=== PATIENT | male | born 2000 | race Two or more races ===

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

== ENCOUNTER 2018-05-21 23:49 | Emergency (ER) | payer OTHER ==
[2018-05-22] MEDS ORDERED: ONDANSETRON DISINTEGRATING 4 MG TAB ONE (00:21)
[2018-05-22] MEDS ORDERED: ONDANSETRON DISINTEGRATING 4 MG TAB PO ONE (00:22)
--- NOTE | 2018-05-22 00:26 | EDPHY ---
H & P Stated Complaint: diarrhea, nausea Time Seen by Provider: 05/22/18 00:11 HPI/ROS: Chief Complaint: Headache, nausea, diarrhea HPI: 18-year-old male developed a mild headache at 5:00 a.m. This evening. He then developed some mild nausea with some abdominal cramping. 30 min ago he had 1 episode of loose stool. He now feels better. No blood or dark tarry stools. He has not vomited. No fevers or chills. No neck stiffness. Headache is resolved. He did take some cough and cold medicine. No cough. No shortness of breath. ROS: 10 systems were reviewed and were negative except those elements noted in the HPI. PMH: Denies Social History: No smoking, no alcohol, no recreational drug use Family History: non-contributory Physical Exam: Gen: Awake, Alert, No Distress HEENT: Nose: no rhinorrhea Eyes: PERRLA, EOMI Mouth: Moist mucosa Neck: Supple, no JVD Chest: nontender, lungs clear to auscultation Heart: S1, S2 normal, no murmur Abd: Soft, non-tender, no guarding Back: no CVA tenderness, no midline tenderness Ext: no edema, non-tender Skin: no rash Neuro: CN II-XII intact, Sensation grossly intact, Strength 5/5 in bilateral upper and lower extremities - Medical/Surgical History Hx Asthma: No Hx Chronic Respiratory Disease: No Hx Diabetes: No Hx Cardiac Disease: No Hx Renal Disease: No Hx Cirrhosis: No Hx Alcoholism: No Hx HIV/AIDS: No Hx Splenectomy or Spleen Trauma: No Other PMH: PMH: denies - Social History Smoking Status: Never smoked Constitutional: Initial Vital Signs Temperature (C) 36.3 C 05/21/18 23:53 Heart Rate 90 05/21/18 23:53 Respiratory Rate 20 05/21/18 23:53 Blood Pressure 119/68 05/21/18 23:53 O2 Sat (%) 97 05/21/18 23:53 O2 Delivery Mode Room Air Allergies/Adverse Reactions: No Known Allergies Allergy (Verified 05/21/18 23:52) Home Medications: Medication Instructions Recorded NK [No Known Home Meds] 12/22/17 Medical Decision Making ED Course/Re-evaluation: Patient is tolerating p. O.. Abdomen is soft and benign. No longer complaining of pain. Will discharge with Zofran prepack, follow up with primary care for any concerns. - Data Points Medications Given: Discontinued Medications Ondansetron HCl (Zofran Odt) 4 mg PO EDNOW ONE Stop: 05/22/18 00:23 Last Admin: 05/22/18 00:26 Dose: 4 mg Departure - Departure Disposition: Home, Routine, Self-Care Clinical Impression: Diarrhea, Nausea & vomiting Condition: Good Instructions: Acute Nausea and Vomiting (ED), Acute Diarrhea (ED), Ondansetron (By mouth) Additional Instructions: Make sure to drink plenty of fluids. You may take Zofran as needed for nausea vomiting. Alternate acetaminophen (1000 mg) with ibuprofen (400 mg) every 4 hours as needed for fevers, chills, aches or pain. Follow up with primary care physician in 3-4 days if symptoms are not improving. Referrals: Eric Brown MD [[facility] [place] [place] Primary Care Provider] - As per Instructions
[2018-05-22] MEDS ORDERED: ONDANSETRON 4MG PREPACK#2 BTL TAKEHOME ONE (01:04)
[2018-05-22 01:26] VITALS: BP 116/78
== END 2018-05-22 01:26 | disposition home or self-care (01) ==
DX: R11.0 Nausea (principal); R19.7 Diarrhea, unspecified; R51 Headache

== ENCOUNTER 2018-05-24 13:24 | Emergency (ER) | payer OTHER ==
--- NOTE | 2018-05-24 13:44 | EDPHY ---
H & P Stated Complaint: Runny nose/bloody nose Time Seen by Provider: 05/24/18 13:36 HPI/ROS: CHIEF COMPLAINT: Rhinorrhea, nasal congestion x2 days HISTORY OF PRESENT ILLNESS: 18-year-old immunocompetent male complaining of 2 days rhinorrhea, nasal congestion. Denies: Fever, chills, chest pain, cough, dyspnea, otalgia, myalgias, flu-like symptoms, muscular flaccidity or weakness or paralysis, abdominal pain, nausea, vomiting, hematemesis, melena, hematochezia, rash. PRIMARY CARE PROVIDER: REVIEW OF SYSTEMS: 10 systems reviewed and negative with the exception of the elements mentioned in the history of present illness PAST MEDICAL & SURGICAL HISTORY: up-to-date with seasonal influenza vaccination SOCIAL HISTORY: Student PHYSICAL EXAM (Prior to examination, patient consented to physical exam, hands were washed and my usual and customary physical exam procedures followed) 1) GENERAL: Well-developed, well-nourished, alert and oriented. Appears to be in no acute distress. 2) HEAD: Normocephalic, atraumatic 3) HEENT: Pupils equal, round, reactive to light bilaterally. Sclera anicteric. Nasopharynx: Coryza. oropharynx, clear, no lesions. Moist Mucous membranes. No tonsillar enlargement or exudate. Ears bilaterally with normal tympanic membranes. No evidence of otitis media otitis externa 4) NECK: Full range of motion, no meningeal signs. 5) LUNGS: Clear auscultation bilaterally, no wheezes, no rhonchi, no retractions. 6) HEART: Regular rate and rhythm, no murmur, no heave, no gallop. 7) ABDOMEN: No guarding, no rebound, no focal tenderness, negative McBurney's, negative Cash's, negative Rovsing's, negative peritoneal sign, 8) MUSCULOSKELETAL: Moving all extremities, no focal areas of tenderness, no obvious trauma. No peripheral edema or discoloration. 9) BACK: No CVA tenderness, no midline vertebral tenderness, no fluctuance, no step-off, no obvious trauma, no visual or palpable abnormality. 10) SKIN: No rash, no petechiae. 11) Psychiatric: Patient is oriented X 3, there is no agitation. DIFFERENTIAL DIAGNOSIS: In no particular order including but not limited to bronchitis, pneumonia, viral syndrome - Personal History Current Tetanus/Diphtheria Vaccine: Yes - Medical/Surgical History Hx Asthma: No Hx Chronic Respiratory Disease: No Hx Diabetes: No Hx Cardiac Disease: No Hx Renal Disease: No Hx Cirrhosis: No Hx Alcoholism: No Hx HIV/AIDS: No Hx Splenectomy or Spleen Trauma: No Other PMH: PMH: denies - Social History Smoking Status: Never smoked Constitutional: Initial Vital Signs Temperature (C) 36.7 C 05/24/18 13:27 Heart Rate 83 05/24/18 13:27 Respiratory Rate 18 05/24/18 13:27 Blood Pressure 124/78 H 05/24/18 13:27 O2 Sat (%) 95 05/24/18 13:27 O2 Delivery Mode Room Air Allergies/Adverse Reactions: No Known Allergies Allergy (Verified 05/24/18 13:29) Home Medications: Medication Instructions Recorded Ipratropium 0.06% Nasal [Atrovent 2 sprays EACHNARE QID #1 mdi 05/24/18 0.06% Nasal (RX)] Pseudoephedrine HCl [Sudafed 12 120 mg PO BID #15 tab 05/24/18 Hour 120mg (*)] Medical Decision Making ED Course/Re-evaluation: Patient's symptoms are more than likely secondary to viral etiology. Doubt meningitis. For these reasons, I do not feel antibiotics are currently indicated. In addition, I do not identify indication for chest x-ray as the patient's lungs are clear bilaterally, has a normal pulse ox, speaking full sentences, no signs of respiratory distress. The patient understands that this diagnosis is provisional and can never be 100% accurate. Usual and customary warnings were given concerning the clinical impression and all the patient's questions were answered. The patient was instructed to return to the emergency department should her symptoms worsen or return, or develop any new symptoms, otherwise to followup as directed in discharge instructions. Care of patient under supervision of secondary supervising physician Dr Suárez . Departure - Departure Disposition: Home, Routine, Self-Care Clinical Impression: Upper respiratory infection Condition: Good Instructions: Upper Respiratory Infection (ED) Additional Instructions: You were examined in the emergency department today for upper respiratory infection (URI) like symptoms. While more URIs are caused by viral illnesses, we cannot always exclude the possibility of a bacterial infection that may require treatment with antibiotics. Return to the emergency department immediately for change in breathing habits, change in voice, change in swallowing habits, change in mental status, or any other symptoms that concern you. Referrals: [facility],. [Clinic] - 3-4 days, if not improved Stand Alone Forms: School Excuse Prescriptions: Ipratropium 0.06% Nasal [Atrovent 0.06% Nasal (RX)] 2 sprays EACHNARE QID #1 mdi Pseudoephedrine HCl [Sudafed 12 Hour 120mg (*)] 120 mg PO BID #15 tab
[2018-05-24 13:52] VITALS: BP 125/78
== END 2018-05-24 13:53 | disposition home or self-care (01) ==
DX: J06.9 Acute upper respiratory infection, unspecified (principal)

== ENCOUNTER 2018-06-23 21:42 | Emergency (ER) | payer OTHER ==
[2018-06-23 22:11] VITALS: BP 150/98
--- NOTE | 2018-06-23 22:29 | EDPHY ---
H & P Time Seen by Provider: 06/23/18 22:23 HPI/ROS: HPI Possible right thumb infection. 18-year-old male by private vehicle with his friend. He is right-hand dominant. He reports that a couple of days ago he noticed an area of mild swelling involving his right radial aspect dorsal thumb tip just underneath the nail bed. He reports that he has been soaking it in Epson salt with warm water. He reports that he had a small amount of drainage from the thumb. He reports that it feels better now but wanted to come to the emergency department to have it evaluated. ROS: Constitutional: No fever, no chills. Musculoskeletal: As above. Skin: No rashes. As above Neurological: No focal weakness or altered sensation. Past medical history: No significant past medical history. He is not on any prescription medications. Social history: Nonsmoker. No alcohol. He is a student [employer]. He studies,: April. Physical Exam: General Appearance: Alert, no distress. This patient is responding to questions appropriately and in full sentences. This patient appears well- hydrated and well-nourished. Eyes: Pupils equal and round no pallor or injection. No lid edema, erythema or injection. Right hand exam: He has a very small, maybe a mm or 2 circular pale area, distal edge of nail bed, just underneath the nail. There is no swelling. No purulent drainage expressed when squeezing this. No evidence of paronychia. No evidence of felon. Right thumb and hand are neurovascularly intact. There is no swelling of the thumb. No erythema, no warmth. No bony abnormality or tenderness. No tenderness along the flexor surface. Neurological: Motor sensory function is grossly intact. Cranial nerves are normal. Gait is normal. Skin: Warm and dry, no rashes. Extremities are symmetrical. All joints range without pain or impingement. Psychiatric: No agitation. No depression. Database: EKG: Imaging: Procedures: Emergency department course: Triage vital signs reviewed. He is mildly hypertensive. Vital signs are otherwise normal. He is afebrile. I do not appreciate any paronychia that requires drainage, evidence of felon or other significant pathology on examination of this patient's right thumb. I have advised warm soaks to the distal right thumb and follow up with his primary care physician. He feels comfortable with this plan. Return to emergency department precautions were reviewed with him. All of his questions were answered. He was discharged from the emergency department in good condition. Differential Diagnosis: The differential diagnosis on this patient includes but is not limited to early paronychia. Felon, significant abscess unlikely. This represents a partial list of diagnoses considered. These considerations are based on history, physical exam, past history, reassessment and diagnostic testing. Smoking Status: Never smoked Constitutional: Initial Vital Signs Temperature (C) 36.9 C 06/23/18 22:09 Heart Rate 86 06/23/18 22:09 Respiratory Rate 18 06/23/18 22:09 Blood Pressure 150/98 H 06/23/18 22:09 O2 Sat (%) 98 06/23/18 22:09 O2 Delivery Mode Room Air Allergies/Adverse Reactions: No Known Allergies Allergy (Verified 06/23/18 22:11) Home Medications: Medication Instructions Recorded NK [No Known Home Meds] 06/23/18 Departure - Departure Disposition: Home, Routine, Self-Care Clinical Impression: Pain of right thumb, Possible early paronychia Condition: Good Instructions: Paronychia (ED) Additional Instructions: Read and follow provided instructions. Follow-up with your primary care physician at the [facility] in 2-3 days for re-evaluation as discussed. Ibuprofen dosin mg every 6 hours with meals for the next 3 days only. Take only as needed for pain. Soaked thumb in warm water with Epson salts as discussed 4 times daily for 10 min for the next 2-3 days. Return to the emergency department for worsening symptoms, worsening pain, swelling or other serious concerns. Referrals: [facility],. [Clinic] - As per Instructions
== END 2018-06-23 22:40 | disposition home or self-care (01) ==
DX: M79.644 Pain in right finger(s) (principal)

== ENCOUNTER 2018-09-13 16:20 | Emergency (ER) | payer OTHER | END 2018-09-13 16:51 | disposition home or self-care (01) ==